=== PATIENT | male | born 1960 | race Caucasian/White ===

== ENCOUNTER 2016-09-23 09:34 | Emergency (ER) | payer BC ==
[~2016-09-23] VITALS: Ht 177.8 cm; Wt 82.9 kg
[2016-09-23 10:39] LABS: MCH 34.8 PG (29.0-34.0); MCHC 35.7 G/DL (30.0-36.0); MCV 97.6 FL (86-99); MEAN PLAT.VOLUME 10.1 uM^3 (9.0-12.4); PLATELET COUNT 118 K/uL (156-360); RBC DIS.WIDTH-CV 12.4 % (11.8-14.6); RED BLOOD COUNT 4.51 M/uL (4.00-5.50)
[2016-09-23 10:48] LABS: CHLORIDE 103 mEq/L (99-109); POTASSIUM 3.9 mEq/L (3.7-5.4); SODIUM 139 mEq/L (136-147)
[2016-09-23 10:49] LABS: GLUCOSE 84 mg/dL (70-99)
[2016-09-23 10:51] LABS: ANION GAP 13 MEQ/L (2-14)
[2016-09-23 10:53] LABS: GFR ESTIMATE (CALCULATED) > 59 mL/min/
[2016-09-23 10:54] LABS: UREA NITROGEN (BUN) 5 mg/dL (9-23)
[2016-09-23 13:53] LABS: TOTAL BILIRUBIN 0.6 mg/dL (0.0-1.0)
[2016-09-23 13:54] LABS: ALKALINE PHOSPHATASE 97 IU/L (3-129)
[2016-09-23 13:57] LABS: DIRECT BILIRUBIN 0.3 mg/dL (0.0-0.3)
[2016-09-23 13:58] LABS: LIPASE 276 U/L (1.0-51.0)
[2016-09-23 16:07] VITALS: BP 162/96
== END 2016-09-23 16:15 | disposition left against medical advice (07) ==
LOC: EME 09:34
DX: K92.2 Gastrointestinal hemorrhage, unspecified (principal); K52.9 Noninfective gastroenteritis and colitis, unspecified; I48.92 Unspecified atrial flutter; F17.200 Nicotine dependence, unspecified, uncomplicated
CPT/HCPCS: 74177; 80048; 80076; 83690; 85027; 86850; 86900; 86901; 93005; 99281; 99285; J7030

== ENCOUNTER → 2016-10-20 | Outpatient (CLI) | payer BC ==
[~2016-10-20] VITALS: Ht 177.8 cm; Wt 83.0 kg
[~2016-10-20] MED LIST: CENTRUM MEN'S1 EACH PO; FISH OIL 1,001000 M2 PO; LO-DOSE ASPIRIN81 M2 PO; PREVACID30 MG PO; TRAMADOL HCL50 MG PO; VERAPAMIL HCL360 MG PO; XANAX0.5 MG PO
== END | disposition home or self-care (01) ==
LOC: AMB 12:49
DX: Z09 Encounter for follow-up examination after completed treatment for conditions other than malignant neoplasm (principal); D12.3 Benign neoplasm of transverse colon; D12.0 Benign neoplasm of cecum; D12.2 Benign neoplasm of ascending colon; D12.5 Benign neoplasm of sigmoid colon; K62.1 Rectal polyp; K57.32 Diverticulitis of large intestine without perforation or abscess without bleeding; K21.9 Gastro-esophageal reflux disease without esophagitis; F17.210 Nicotine dependence, cigarettes, uncomplicated; Z79.82 Long term (current) use of aspirin
CPT/HCPCS: 88305; J2250; J3010

== ENCOUNTER 2017-07-18 12:48 | Inpatient (IN) | payer BC ==
[~2017-07-18] VITALS: Ht 177.8 cm; Wt 101.4 kg
[2017-07-18 13:40] LABS: EOSINOPHIL (%) 0.1 % (0-5); HEMATOCRIT 26.1 % (38.0-50.0); IMMATURE GRANULOCYTE (%) 0.8 % (0.0-0.7); IMMATURE GRANULOCYTE COUNT 0.1 K/uL; INSTRUMENT ABS NEUTROPHIL CT 14.2 K/uL; LYMPHOCYTE COUNT 0.7 K/uL (1.0-2.8); MCH 38.4 PG (29.0-34.0); MCHC 35.6 G/DL (30.0-36.0); MCV 107.9 FL (86-99); MEAN PLAT.VOLUME 11.1 uM^3 (9.0-12.4); MONOCYTE (%) 5.7 % (3-12); MONOCYTE COUNT 0.9 K/uL (0-0.8); NEUTROPHIL (%) 88.7 % (45-76); NEUTROPHIL COUNT 14.2 K/uL (1.8-6.4); PLATELET COUNT 113 K/uL (156-360); RBC DIS.WIDTH-CV 15.3 % (11.8-14.6); RBC DIS.WIDTH-SD 60.5 % (39-53); RED BLOOD COUNT 2.42 M/uL (4.00-5.50)
[2017-07-18 13:49] LABS: INTER. NORMALIZED RATIO 1.4; PROTHROMBIN TIME 15.4 SEC (10.2-12.9)
[2017-07-18 13:51] LABS: CHLORIDE 85 mEq/L (99-109)
[2017-07-18 13:52] LABS: POTASSIUM 2.9 mEq/L (3.7-5.4); SODIUM 124 mEq/L (136-147)
[2017-07-18 13:54] LABS: GLUCOSE 106 mg/dL (70-99)
[2017-07-18 13:55] LABS: ANION GAP 9 MEQ/L (2-14)
[2017-07-18 13:56] LABS: TOTAL BILIRUBIN 9.5 mg/dL (0.0-1.0)
[2017-07-18 13:57] LABS: ALKALINE PHOSPHATASE 336 IU/L (3-129); GFR ESTIMATE (CALCULATED) > 59 mL/min/
[2017-07-18 13:58] LABS: UREA NITROGEN (BUN) 11 mg/dL (9-23)
[2017-07-18 14:01] LABS: LIPASE 114 U/L (1.0-51.0)
[2017-07-18 15:14] LABS: SERUM ETHYL ALCOHOL < 10 mg/dL
[2017-07-18] MEDS ORDERED: MELOXICAM7.5 MG PO (16:14)
[2017-07-18] MEDS ORDERED: SERTRALINE HCL25 MG PO (16:15)
[2017-07-18] MEDS ORDERED: VERAPAMIL HCL240 MG PO (16:21)
[2017-07-18] MEDS ORDERED: VERAPAMIL SR120 MG PO (16:22)
[2017-07-18 16:23] LABS: AMPHETAMINE NEGATIVE (500 ng/mL); BARBITURATES NEGATIVE (200 ng/mL); BENZODIAZEPINES NEGATIVE (150 ng/mL); COCAINE NEGATIVE (150 ng/mL); INTERNAL CONTROLS VALID? YES; METHADONE NEGATIVE (200 ng/mL); METHAMPHETAMINE NEGATIVE (500 ng/mL); OPIATES (MORPHINE) NEGATIVE (100 ng/mL); OXYCODONE NEGATIVE (100 ng/mL); PHENCYCLIDINE NEGATIVE (25 ng/mL); PROPOXYPHENE NEGATIVE (300 ng/mL); THC CANNABINOIDS NEGATIVE (50 ng/mL); TRICYCLIC ANTIDEPRESSANTS NEGATIVE (300 ng/mL)
[2017-07-18] MEDS ORDERED: LANSOPRAZOLE30 MG PO (16:23)
[2017-07-18 16:24] LABS: CHLORIDE 89 mEq/L (99-109); POTASSIUM 2.8 mEq/L (3.7-5.4); SODIUM 122 mEq/L (136-147)
[2017-07-18 16:26] LABS: GLUCOSE 118 mg/dL (70-99)
[2017-07-18 16:28] LABS: ANION GAP 6 MEQ/L (2-14); TOTAL BILIRUBIN 8.7 mg/dL (0.0-1.0)
[2017-07-18 16:30] LABS: ALKALINE PHOSPHATASE 313 IU/L (3-129); GFR ESTIMATE (CALCULATED) > 59 mL/min/
[2017-07-18 16:31] LABS: UREA NITROGEN (BUN) 10 mg/dL (9-23)
[2017-07-18 17:28] LABS: HEMATOCRIT 25.6 % (38.0-50.0); MCV 108.5 FL (86-99)
[2017-07-18 19:17] LABS: CHLORIDE 93 mEq/L (99-109); POTASSIUM 3.2 mEq/L (3.7-5.4); SODIUM 126 mEq/L (136-147)
[2017-07-18 19:19] LABS: GLUCOSE 127 mg/dL (70-99)
[2017-07-18 19:20] LABS: ANION GAP 7 MEQ/L (2-14)
[2017-07-18 19:21] LABS: TOTAL BILIRUBIN 8.4 mg/dL (0.0-1.0)
[2017-07-18 19:22] LABS: ALKALINE PHOSPHATASE 293 IU/L (3-129)
[2017-07-18 19:23] LABS: GFR ESTIMATE (CALCULATED) > 59 mL/min/
[2017-07-18 19:24] LABS: UREA NITROGEN (BUN) 11 mg/dL (9-23)
[2017-07-19] VITALS (14 sets, daily range): BP systolic 81–135; BP diastolic 57–124
[2017-07-19 00:31] LABS: HEMATOCRIT 27.9 % (38.0-50.0); MCV 110.3 FL (86-99)
[2017-07-19 07:42] LABS: METH RESISTANT S AUREUS PCR NEGATIVE (NEGATIVE); PROBE CHECK PASS; SPECIMEN PROCESSING CONTROL PASS
[2017-07-19 07:52] LABS: HEMATOCRIT 26.7 % (38.0-50.0); MCV 113.6 FL (86-99)
[2017-07-19 08:02] LABS: INTER. NORMALIZED RATIO 1.3; PROTHROMBIN TIME 14.9 SEC (10.2-12.9)
[2017-07-19 08:17] LABS: ALKALINE PHOSPHATASE 256 IU/L (3-129); ANION GAP 4 MEQ/L (2-14); CHLORIDE 99 MEQ/L (99-109); GFR ESTIMATE (CALCULATED) > 59 mL/min/; GLUCOSE 121 mg/dL (70-99); POTASSIUM 3.8 MEQ/L (3.7-5.4); SAMPLE HEMOLYSIS CHECK 0; SAMPLE ICTERIC CHECK 2; SAMPLE LIPEMIA CHECK 0; SODIUM 128 MEQ/L (136-147); TOTAL BILIRUBIN 9.5 MG/DL (0.0-1.0); UREA NITROGEN (BUN) 7 mg/dL (9-23)
[2017-07-19 11:40] LABS: HBSG INDEX 0.18
[2017-07-19 11:41] LABS: ANTI-HEPATITIS A VIRUS (IGM) Nonreactive; HAV INDEX 0.23; HPCA INDEX 0.09
[2017-07-19 11:42] LABS: ANTI-HEPATITIS B CORE (IGM) Nonreactive; HBC IgM INDEX 0.19
[2017-07-19 11:45] LABS: HBSG INDEX 0.32; HPCA INDEX 0.11
[2017-07-19 11:46] LABS: ANTI-HEPATITIS A VIRUS (IGM) Nonreactive; ANTI-HEPATITIS B CORE (IGM) Nonreactive; HAV INDEX 0.26; HBC IgM INDEX 0.17
[2017-07-20] VITALS (9 sets, daily range): BP systolic 88–116; BP diastolic 68–86
[2017-07-20 06:21] LABS: HEMATOCRIT 26.7 % (38.0-50.0); MCH 38.5 PG (29.0-34.0); MCHC 33.7 G/DL (30.0-36.0); MCV 114.1 FL (86-99); MEAN PLAT.VOLUME 11.3 uM^3 (9.0-12.4); PLATELET COUNT 101 K/uL (156-360); RBC DIS.WIDTH-CV 15.3 % (11.8-14.6); RBC DIS.WIDTH-SD 64.3 % (39-53); RED BLOOD COUNT 2.34 M/uL (4.00-5.50)
[2017-07-20 06:48] LABS: ALKALINE PHOSPHATASE 253 IU/L (3-129); ANION GAP 5 MEQ/L (2-14); CHLORIDE 100 MEQ/L (99-109); GFR ESTIMATE (CALCULATED) > 59 mL/min/; GLUCOSE 95 mg/dL (70-99); POTASSIUM 3.4 MEQ/L (3.7-5.4); SAMPLE HEMOLYSIS CHECK 0; SAMPLE ICTERIC CHECK 2; SAMPLE LIPEMIA CHECK 0; SODIUM 130 MEQ/L (136-147); UREA NITROGEN (BUN) 6 mg/dL (9-23)
[2017-07-21 06:23] LABS: HEMATOCRIT 26.4 % (38.0-50.0); MCH 39.8 PG (29.0-34.0); MCHC 34.8 G/DL (30.0-36.0); MCV 114.3 FL (86-99); PLATELET COUNT 93 K/uL (156-360); RBC DIS.WIDTH-CV 15.2 % (11.8-14.6); RBC DIS.WIDTH-SD 63.8 % (39-53); RED BLOOD COUNT 2.31 M/uL (4.00-5.50); WHITE BLOOD COUNT 11.2 K/uL (4.1-10.2)
[2017-07-21 06:29] LABS: INTER. NORMALIZED RATIO 1.3; PROTHROMBIN TIME 14.6 SEC (10.2-12.9)
[2017-07-21 07:05] LABS: ALKALINE PHOSPHATASE 292 IU/L (3-129); ANION GAP 3 MEQ/L (2-14); CHLORIDE 99 MEQ/L (99-109); GFR ESTIMATE (CALCULATED) > 59 mL/min/; GLUCOSE 98 mg/dL (70-99); POTASSIUM 3.7 MEQ/L (3.7-5.4); SAMPLE HEMOLYSIS CHECK 0; SAMPLE ICTERIC CHECK 2; SAMPLE LIPEMIA CHECK 0; SODIUM 127 MEQ/L (136-147); TOTAL BILIRUBIN 8.2 MG/DL (0.0-1.0); UREA NITROGEN (BUN) 7 mg/dL (9-23)
[2017-07-21 07:27] VITALS: BP 114/74
[2017-07-21 11:40] VITALS: BP 145/80
[2017-07-21 14:52] LABS: MAGNESIUM 1.3 mg/dl (1.3-2.7)
[2017-07-21 15:42] VITALS: BP 113/63
[2017-07-21 20:46] VITALS: BP 105/70
[2017-07-21 23:50] VITALS: BP 100/62
[2017-07-22 03:25] LABS: POINT-OF-CARE METER ID UU13113717
[2017-07-22 04:24] VITALS: BP 97/66
[2017-07-22 06:48] LABS: HEMATOCRIT 26.6 % (38.0-50.0); MCH 37.9 PG (29.0-34.0); MCHC 33.1 G/DL (30.0-36.0); MCV 114.7 FL (86-99); MEAN PLAT.VOLUME 11.5 uM^3 (9.0-12.4); PLATELET COUNT 100 K/uL (156-360); RBC DIS.WIDTH-SD 62.5 % (39-53); RED BLOOD COUNT 2.32 M/uL (4.00-5.50); WHITE BLOOD COUNT 12.4 K/uL (4.1-10.2)
[2017-07-22 07:04] LABS: INTER. NORMALIZED RATIO 1.3
[2017-07-22 07:29] LABS: ALKALINE PHOSPHATASE 269 IU/L (3-129); ANION GAP 6 MEQ/L (2-14); CHLORIDE 101 MEQ/L (99-109); GFR ESTIMATE (CALCULATED) > 59 mL/min/; GLUCOSE 108 mg/dL (70-99); POTASSIUM 3.9 MEQ/L (3.7-5.4); SAMPLE HEMOLYSIS CHECK 0; SAMPLE ICTERIC CHECK 2; SAMPLE LIPEMIA CHECK 0; SODIUM 129 MEQ/L (136-147); UREA NITROGEN (BUN) 8 mg/dL (9-23)
[2017-07-22 09:29] VITALS: BP 94/65
[2017-07-22 12:24] VITALS: BP 86/69
[2017-07-22 16:14] VITALS: BP 102/68
[2017-07-22 20:02] VITALS: BP 94/65
[2017-07-22 21:05] LABS: C DIFF TOXIN POSITIVE (NEGATIVE)
[2017-07-22 21:17] LABS: PROBE CHECK PASS
[2017-07-23 00:54] VITALS: BP 113/81
[2017-07-23 04:26] LABS: INTERNAL CONTROL VALID? YES
[2017-07-23 07:22] LABS: BASOPHIL COUNT 0.1 K/uL (0-0.1); EOSINOPHIL (%) 0.7 % (0-5); EOSINOPHIL COUNT 0.1 K/uL (0-0.3); HEMATOCRIT 26.6 % (38.0-50.0); IMMATURE GRANULOCYTE (%) 0.7 % (0.0-0.7); IMMATURE GRANULOCYTE COUNT 0.1 K/uL; INSTRUMENT ABS NEUTROPHIL CT 10.2 K/uL; LYMPHOCYTE COUNT 0.9 K/uL (1.0-2.8); MCH 38.1 PG (29.0-34.0); MCHC 33.1 G/DL (30.0-36.0); MCV 115.2 FL (86-99); MEAN PLAT.VOLUME 11.4 uM^3 (9.0-12.4); MONOCYTE (%) 7.6 % (3-12); MONOCYTE COUNT 0.9 K/uL (0-0.8); NEUTROPHIL (%) 83.1 % (45-76); NEUTROPHIL COUNT 10.2 K/uL (1.8-6.4); PLATELET COUNT 106 K/uL (156-360); RBC DIS.WIDTH-CV 15.1 % (11.8-14.6); RBC DIS.WIDTH-SD 64.8 % (39-53); RED BLOOD COUNT 2.31 M/uL (4.00-5.50); WHITE BLOOD COUNT 12.2 K/uL (4.1-10.2)
[2017-07-23 07:42] VITALS: BP 112/64
[2017-07-23 07:58] LABS: ALKALINE PHOSPHATASE 261 IU/L (3-129); ANION GAP 5 MEQ/L (2-14); CHLORIDE 103 MEQ/L (99-109); GFR ESTIMATE (CALCULATED) > 59 mL/min/; GLUCOSE 104 mg/dL (70-99); POTASSIUM 3.4 MEQ/L (3.7-5.4); SAMPLE HEMOLYSIS CHECK 0; SAMPLE ICTERIC CHECK 1; SAMPLE LIPEMIA CHECK 0; SODIUM 131 MEQ/L (136-147); TOTAL BILIRUBIN 5.6 MG/DL (0.0-1.0); UREA NITROGEN (BUN) 9 mg/dL (9-23)
[2017-07-23 07:59] LABS: MAGNESIUM 1.6 mg/dl (1.3-2.7)
[2017-07-23 11:14] VITALS: BP 87/57
[2017-07-23 16:53] VITALS: BP 93/66
[2017-07-23 19:33] VITALS: BP 110/64
[2017-07-24 00:22] VITALS: BP 116/69
[2017-07-24 03:39] VITALS: BP 106/71
[2017-07-24 06:46] LABS: HEMATOCRIT 28.3 % (38.0-50.0); MCHC 32.5 G/DL (30.0-36.0); MCV 116.9 FL (86-99); MEAN PLAT.VOLUME 11.2 uM^3 (9.0-12.4); PLATELET COUNT 120 K/uL (156-360); RBC DIS.WIDTH-SD 65.1 % (39-53); RED BLOOD COUNT 2.42 M/uL (4.00-5.50); WHITE BLOOD COUNT 11.8 K/uL (4.1-10.2)
[2017-07-24 07:08] LABS: ANION GAP 8 MEQ/L (2-14); CHLORIDE 105 MEQ/L (99-109); GFR ESTIMATE (CALCULATED) > 59 mL/min/ (58.99-99999); GLUCOSE 99 mg/dL (70-99); MAGNESIUM 1.6 mg/dl (1.3-2.7); SAMPLE HEMOLYSIS CHECK 0; SAMPLE ICTERIC CHECK 1; SAMPLE LIPEMIA CHECK 0; SODIUM 132 MEQ/L (136-147); UREA NITROGEN (BUN) 10 mg/dL (9-23)
[2017-07-24 07:11] LABS: POTASSIUM 4.6 MEQ/L (3.7-5.4)
[2017-07-24 07:40] VITALS: BP 112/78
[2017-07-24 11:33] VITALS: BP 110/74
[2017-07-24 15:40] VITALS: BP 104/72
[2017-07-24 19:56] VITALS: BP 120/72
[2017-07-25 00:17] VITALS: BP 113/74
[2017-07-25 07:15] LABS: ALKALINE PHOSPHATASE 246 IU/L (3-129); ANION GAP 4 MEQ/L (2-14); CHLORIDE 107 MEQ/L (99-109); GFR ESTIMATE (CALCULATED) > 59 mL/min/ (58.99-99999); GLUCOSE 82 mg/dL (70-99); MAGNESIUM 1.4 mg/dl (1.3-2.7); POTASSIUM 4.7 MEQ/L (3.7-5.4); SAMPLE HEMOLYSIS CHECK 0; SAMPLE ICTERIC CHECK 1; SAMPLE LIPEMIA CHECK 0; SODIUM 133 MEQ/L (136-147); TOTAL BILIRUBIN 4.6 MG/DL (0.0-1.0); UREA NITROGEN (BUN) 10 mg/dL (9-23)
[2017-07-25 07:24] VITALS: BP 108/67
[2017-07-25 10:01] LABS: HEMATOCRIT 29.1 % (38.0-50.0); MCH 38.8 PG (29.0-34.0); MCHC 32.6 G/DL (30.0-36.0); MCV 118.8 FL (86-99); MEAN PLAT.VOLUME 11.1 uM^3 (9.0-12.4); PLATELET COUNT 130 K/uL (156-360); RBC DIS.WIDTH-CV 15.1 % (11.8-14.6); RBC DIS.WIDTH-SD 66.4 % (39-53); RED BLOOD COUNT 2.45 M/uL (4.00-5.50); WHITE BLOOD COUNT 11.6 K/uL (4.1-10.2)
[2017-07-25 11:06] VITALS: BP 126/94
[2017-07-25] MEDS ORDERED: VANCOCIN HCL125 MG PO (11:33)
[2017-07-25] MEDS ORDERED: FLAGYL500 MG PO (11:33)
[2017-07-25] MEDS ORDERED: OYSTER SHELL 51 EACH PO (11:36)
[2017-07-25] MEDS ORDERED: TRAMADOL HCL50 MG PO (11:36)
[2017-07-25] MEDS ORDERED: CALAN SR,COVER240 MG PO (11:36)
[2017-07-25] MEDS ORDERED: FAMOTIDINE20 MG PO (11:36)
[2017-07-25] MEDS ORDERED: Salonpas 4% Patch TD (11:36)
[2017-07-25] MEDS ORDERED: Thiamine,Vitamin B1 PO (11:36)
[2017-07-25] MEDS ORDERED: NICOTINE PATCH1 EAC2 TD (11:36)
[2017-07-25] MEDS ORDERED: FOLIC ACID1 MG PO (11:36)
[2017-07-25] MEDS ORDERED: ACIDOPHILUS LA1 EACH PO (11:36)
== END 2017-07-25 15:57 | disposition home health service (06) | DRG 433 ==
LOC: EME 12:48 → EDOF 15:31 → 4WEST 15:31 → 5SOUTH 15:31 → ENRESERV 15:38 → CANRESERV 07-19 04:08 → ENRESERV 07-19 05:12 → 4WEST 07-19 06:00 → ENRESERV 07-20 13:09 → 5SOUTH 07-20 14:17
PROVIDERS: Emergency Medicine; Family Medicine; Hospitalist; Internal Medicine Gastroenterology
DX: K70.40 Alcoholic hepatic failure without coma (principal); K70.10 Alcoholic hepatitis without ascites; E44.0 Moderate protein-calorie malnutrition; E83.42 Hypomagnesemia; E83.39 Other disorders of phosphorus metabolism; A04.72 Enterocolitis due to Clostridium difficile, not specified as recurrent; E83.51 Hypocalcemia; E87.1 Hypo-osmolality and hyponatremia; D68.4 Acquired coagulation factor deficiency; D69.6 Thrombocytopenia, unspecified; I95.9 Hypotension, unspecified; E87.6 Hypokalemia; E86.0 Dehydration; R00.0 Tachycardia, unspecified; D53.9 Nutritional anemia, unspecified; F10.10 Alcohol abuse, uncomplicated; I10 Essential (primary) hypertension; K21.9 Gastro-esophageal reflux disease without esophagitis; G89.29 Other chronic pain; M54.5 Low back pain; G47.00 Insomnia, unspecified; F17.210 Nicotine dependence, cigarettes, uncomplicated; Z79.82 Long term (current) use of aspirin; Z86.010 Personal history of colon polyps; Z23 Encounter for immunization
CPT/HCPCS: 71010; 71020; 74177; 80048; 80053; 80074; 82140; 82272; 82330; 82607; 82746; 82948; 83605; 83690; 83735; 84100; 84132 91; 85014; 85018; 85025; 85027; 85610; 86850; 86900; 86901; 87040; 87493; 87641; 90686; 93005; 94799; 97530 GP; 99281; 99284; G0480; J0610; J0696; J2354; J3411; J3475; J3480; J7030; J7040; J7050; S0030

== ENCOUNTER 2017-07-31 09:50 | Emergency (ER) | payer BC ==
[~2017-07-31] VITALS: Ht 177.8 cm; Wt 104.3 kg
[~2017-07-31 09:50] MED LIST changes: +ACIDOPHILUS LA1 EACH PO; +CALAN SR,COVER240 MG PO; +FAMOTIDINE20 MG PO; +FLAGYL500 MG PO; +FOLIC ACID1 MG PO; +LANSOPRAZOLE30 MG PO; +MELOXICAM7.5 MG PO; +NICOTINE PATCH1 EAC2 TD; +OYSTER SHELL 51 EACH PO; +SERTRALINE HCL25 MG PO; +Salonpas 4% Patch TD; +Thiamine,Vitamin B1 PO; +VANCOCIN HCL125 MG PO; +VERAPAMIL HCL240 MG PO; +VERAPAMIL SR120 MG PO
[2017-07-31 11:06] LABS: TROP-I INTERPRETATION NEGATIVE; TROPONIN-I < 0.01 ng/mL (0.0-0.30)
[2017-07-31 11:07] LABS: CK-MB 1.7 ng/mL (0.0-4.9)
[2017-07-31 11:21] LABS: EOSINOPHIL COUNT 0.1 K/uL (0-0.3); HEMATOCRIT 31.4 % (38.0-50.0); IMMATURE GRANULOCYTE (%) 0.4 % (0.0-0.7); IMMATURE GRANULOCYTE COUNT 0.1 K/uL; INSTRUMENT ABS NEUTROPHIL CT 11.7 K/uL; LYMPHOCYTE COUNT 0.7 K/uL (1.0-2.8); MCH 38.2 PG (29.0-34.0); MCHC 33.4 G/DL (30.0-36.0); MCV 114.2 FL (86-99); MEAN PLAT.VOLUME 10.4 uM^3 (9.0-12.4); MONOCYTE COUNT 1.1 K/uL (0-0.8); NEUTROPHIL (%) 85.5 % (45-76); NEUTROPHIL COUNT 11.7 K/uL (1.8-6.4); PLATELET COUNT 191 K/uL (156-360); RBC DIS.WIDTH-CV 13.9 % (11.8-14.6); RBC DIS.WIDTH-SD 57.9 % (39-53); RED BLOOD COUNT 2.75 M/uL (4.00-5.50); WHITE BLOOD COUNT 13.7 K/uL (4.1-10.2)
[2017-07-31 11:49] LABS: ALKALINE PHOSPHATASE 235 IU/L (3-129); ANION GAP 8 MEQ/L (2-14); CHLORIDE 104 MEQ/L (99-109); GFR ESTIMATE (CALCULATED) > 59 mL/min/ (58.99-99999); GLUCOSE 110 mg/dL (70-99); MAGNESIUM 1.4 mg/dl (1.3-2.7); POTASSIUM 3.8 MEQ/L (3.7-5.4); SAMPLE HEMOLYSIS CHECK 0; SAMPLE ICTERIC CHECK 0; SAMPLE LIPEMIA CHECK 0; SERUM ETHYL ALCOHOL < 10 mg/dL; SODIUM 132 MEQ/L (136-147); UREA NITROGEN (BUN) 12 mg/dL (9-23)
[2017-07-31 11:51] LABS: TOTAL BILIRUBIN 3.4 MG/DL (0.0-1.0)
[2017-07-31 13:11] LABS: CREATINE KINASE 18 IU/L (1-294); TOTAL CK 18 IU/L (1-294)
[2017-07-31 15:10] LABS: ADD MIUA? YES; BILIRUBIN SMALL; BLOOD NEGATIVE; COLOR AMBER ((YELLOW)); GLUCOSE (STRIP) NEGATIVE; KETONES 5; LEUKOCYTES TRACE; NITRITE NEGATIVE; PROTEIN (STRIP) 30; SPECIFIC GRAVITY 1.023 (1.000-1.030)
[2017-07-31 15:23] LABS: AMORPHOUS URATES CRYSTALS 1+; BACTERIA NONE SEEN /HPF; CASTS PRESENT /LPF; CRYSTALS PRESENT; EPITHELIAL CELLS NONE SEEN /HPF; HYALINE CASTS 0-5 /LPF; MUCUS 1+ /LPF; RED BLOOD CELLS RARE /HPF (0-5); UCUL ADDED? NO; WHITE BLOOD CELLS 0-5 /HPF (0-5)
[2017-07-31 16:26] VITALS: BP 106/74
== END 2017-07-31 16:26 | disposition home or self-care (01) ==
LOC: EME 09:50
PROVIDERS: Emergency Medicine
DX: A04.72 Enterocolitis due to Clostridium difficile, not specified as recurrent (principal); E86.0 Dehydration; I47.1 Supraventricular tachycardia; R00.2 Palpitations; F17.200 Nicotine dependence, unspecified, uncomplicated
CPT/HCPCS: 80053; 81003; 82550; 82553; 83735; 84484; 85025; 87493; 93005; 99281; 99285; G0480; J7030

== ENCOUNTER 2017-08-16 07:28 | Inpatient (IN) | payer BC ==
[~2017-08-16] VITALS: Ht 177.8 cm; Wt 89.0 kg
[2017-08-16 08:13] LABS: BASOPHIL (%) 0.1 % (0-1); EOSINOPHIL COUNT 0.1 K/uL (0-0.3); HEMATOCRIT 34.9 % (38.0-50.0); HEMOGLOBIN 11.7 G/DL (12.5-16.6); IMMATURE GRANULOCYTE (%) 0.2 % (0.0-0.7); LYMPHOCYTE (%) 7.2 % (15-42); LYMPHOCYTE COUNT 0.7 K/uL (1.0-2.8); MCH 35.7 PG (29.0-34.0); MCHC 33.5 G/DL (30.0-36.0); MONOCYTE (%) 9.5 % (3-12); NEUTROPHIL COUNT 8.3 K/uL (1.8-6.4); PLATELET COUNT 143 K/uL (156-360); RBC DIS.WIDTH-CV 12.5 % (11.8-14.6); RBC DIS.WIDTH-SD 49.1 % (39-53); RED BLOOD COUNT 3.28 M/uL (4.00-5.50); WHITE BLOOD COUNT 10.2 K/uL (4.1-10.2)
[2017-08-16 08:15] LABS: INTER. NORMALIZED RATIO 1.2
[2017-08-16 08:16] LABS: MCV 106.4 FL (86-99)
[2017-08-16 08:43] LABS: TROP-I INTERPRETATION NEGATIVE; TROPONIN-I < 0.01 ng/mL (0.0-0.30)
[2017-08-16 08:52] LABS: ALBUMIN 2.1 G/DL (3.2-4.8); ALKALINE PHOSPHATASE 203 IU/L (3-129); ALT (GPT) 89 IU/L (3-49); AST (GOT) 91 IU/L (2-34); CHLORIDE 98 MEQ/L (99-109); CREATININE 0.5 MG/DL (0.6-1.3); GFR ESTIMATE (CALCULATED) > 59 mL/min/ (58.99-99999); GLUCOSE 99 mg/dL (70-99); POTASSIUM 4.4 MEQ/L (3.7-5.4); SERUM ETHYL ALCOHOL 11 mg/dL; SODIUM 127 MEQ/L (136-147); TOTAL BILIRUBIN 2.1 MG/DL (0.0-1.0); TOTAL PROTEIN 5.3 G/DL (6.4-8.3); UREA NITROGEN (BUN) 8 mg/dL (9-23)
[2017-08-16 09:24] LABS: TYPE OF FLUID PERITONEAL
[2017-08-16 10:12] LABS: APPEARANCE CLEAR-COLORLESS; BODY FLUID EOSINOPHILS 0 % (0-25); BODY FLUID RBC'S < 1000 /MM^3 (0-100); BODY FLUID WBC'S 21 /MM^3 (0-500); MONONUCLEAR WBC'S 86 %; POLYNUCLEAR WBC'S 14 % (0-25)
[2017-08-16] MEDS ORDERED: LANSOPRAZOLE30 MG PO (10:48)
[2017-08-16] MEDS ORDERED: THIAMINE HCL100 MG PO (10:50)
[2017-08-16] MEDS ORDERED: SPIRONOLACTONE50 MG PO (10:51)
[2017-08-16] MEDS ORDERED: NICODERM CQ1 EAC2 TD (11:11)
[2017-08-16] MEDS ORDERED: SALONPAS PATCH1 EAC1 TD (11:12)
[2017-08-16 14:21] LABS: APPEARANCE SL.HAZY ((CLEAR)); BILIRUBIN NEGATIVE; BLOOD NEGATIVE; COLOR AMBER ((YELLOW)); GLUCOSE (STRIP) NEGATIVE; KETONES NEGATIVE; LEUKOCYTES NEGATIVE; NITRITE NEGATIVE; PROTEIN (STRIP) NEGATIVE; UROBILINOGEN 0.2 MG/DL (0.2-1.0)
[2017-08-16 15:04] LABS: BACTERIA NONE SEEN /HPF; EPITHELIAL CELLS RARE /HPF; MUCUS TRACE /LPF; UCUL ADDED? YES
[2017-08-16 16:23] VITALS: BP 98/68
[2017-08-16 20:04] VITALS: BP 94/56
[2017-08-16 23:29] VITALS: BP 94/59
[2017-08-17 04:33] VITALS: BP 100/64
[2017-08-17 05:46] LABS: HEMATOCRIT 31.5 % (38.0-50.0); HEMOGLOBIN 10.9 G/DL (12.5-16.6); MCHC 34.6 G/DL (30.0-36.0); PLATELET COUNT 109 K/uL (156-360); RBC DIS.WIDTH-CV 12.3 % (11.8-14.6); RBC DIS.WIDTH-SD 47.3 % (39-53); RED BLOOD COUNT 3.03 M/uL (4.00-5.50); WHITE BLOOD COUNT 7.7 K/uL (4.1-10.2)
[2017-08-17 06:12] LABS: CHLORIDE 97 MEQ/L (99-109); CREATININE 0.4 MG/DL (0.6-1.3); GFR ESTIMATE (CALCULATED) > 59 mL/min/ (58.99-99999); GLUCOSE 79 mg/dL (70-99); SODIUM 127 MEQ/L (136-147); UREA NITROGEN (BUN) 7 mg/dL (9-23)
[2017-08-17 06:30] LABS: INTER. NORMALIZED RATIO 1.2
[2017-08-17 07:37] VITALS: BP 98/58
[2017-08-17 11:47] VITALS: BP 92/63
[2017-08-17 15:15] VITALS: BP 93/62
[2017-08-17 19:23] VITALS: BP 99/65
[2017-08-18] VITALS (7 sets, daily range): BP systolic 87–101; BP diastolic 51–70
[2017-08-18 06:23] LABS: HEMATOCRIT 33.9 % (38.0-50.0); HEMOGLOBIN 11.6 G/DL (12.5-16.6); MCH 36.1 PG (29.0-34.0); MCHC 34.2 G/DL (30.0-36.0); MCV 105.6 FL (86-99); PLATELET COUNT 118 K/uL (156-360); RBC DIS.WIDTH-CV 12.3 % (11.8-14.6); RED BLOOD COUNT 3.21 M/uL (4.00-5.50); WHITE BLOOD COUNT 9.4 K/uL (4.1-10.2)
[2017-08-18 07:42] LABS: CHLORIDE 95 MEQ/L (99-109); CREATININE 0.5 MG/DL (0.6-1.3); GFR ESTIMATE (CALCULATED) > 59 mL/min/ (58.99-99999); GLUCOSE 90 mg/dL (70-99); SODIUM 128 MEQ/L (136-147); UREA NITROGEN (BUN) 8 mg/dL (9-23)
[2017-08-18 14:52] LABS: TYPE OF FLUID PLEURAL
[2017-08-18 15:20] LABS: APPEARANCE CLEAR-YELLOW; BODY FLUID RBC'S < 1000 /MM^3 (0-100); BODY FLUID WBC'S 75 /MM^3 (0-500)
[2017-08-18 16:12] LABS: BODY FLUID GLUCOSE 116 MG/DL; BODY FLUID LDH 61 IU/L; BODY FLUID PROTEIN < 3.0 G/DL
[2017-08-18 16:55] LABS: BODY FLUID EOSINOPHILS 0 % (0-25); MONONUCLEAR WBC'S 11 %; POLYNUCLEAR WBC'S 89 % (0-25)
[2017-08-19 00:09] VITALS: BP 97/65
[2017-08-19 04:13] VITALS: BP 90/61
[2017-08-19 04:57] LABS: HEMATOCRIT 31.2 % (38.0-50.0); HEMOGLOBIN 10.6 G/DL (12.5-16.6); MCH 35.5 PG (29.0-34.0); MCV 104.3 FL (86-99); PLATELET COUNT 107 K/uL (156-360); RBC DIS.WIDTH-CV 12.4 % (11.8-14.6); RBC DIS.WIDTH-SD 47.7 % (39-53); RED BLOOD COUNT 2.99 M/uL (4.00-5.50); WHITE BLOOD COUNT 10.6 K/uL (4.1-10.2)
[2017-08-19 05:13] LABS: CHLORIDE 96 mEq/L (99-109); SODIUM 127 mEq/L (136-147)
[2017-08-19 05:15] LABS: GLUCOSE 104 mg/dL (70-99)
[2017-08-19 05:18] LABS: CREATININE 0.5 mg/dL (0.6-1.3); GFR ESTIMATE (CALCULATED) > 59 mL/min/ (58.99-99999)
[2017-08-19 05:20] LABS: UREA NITROGEN (BUN) 7 mg/dL (9-23)
[2017-08-19 11:09] VITALS: BP 87/55
[2017-08-19 15:27] VITALS: BP 117/57
[2017-08-19 19:46] VITALS: BP 85/66
[2017-08-19 23:46] VITALS: BP 90/56
[2017-08-20 04:56] VITALS: BP 108/72
[2017-08-20 05:50] LABS: HEMOGLOBIN 10.3 G/DL (12.5-16.6); MCH 34.8 PG (29.0-34.0); MCHC 33.2 G/DL (30.0-36.0); MCV 104.7 FL (86-99); PLATELET COUNT 105 K/uL (156-360); RBC DIS.WIDTH-CV 12.2 % (11.8-14.6); RED BLOOD COUNT 2.96 M/uL (4.00-5.50); WHITE BLOOD COUNT 7.9 K/uL (4.1-10.2)
[2017-08-20 06:12] LABS: ALBUMIN 2.2 G/DL (3.2-4.8); ALKALINE PHOSPHATASE 138 IU/L (3-129); ALT (GPT) 52 IU/L (3-49); AST (GOT) 54 IU/L (2-34); CHLORIDE 96 MEQ/L (99-109); CREATININE 0.4 MG/DL (0.6-1.3); GFR ESTIMATE (CALCULATED) > 59 mL/min/ (58.99-99999); GLUCOSE 87 mg/dL (70-99); POTASSIUM 3.8 MEQ/L (3.7-5.4); SODIUM 127 MEQ/L (136-147); TOTAL BILIRUBIN 1.5 MG/DL (0.0-1.0); TOTAL PROTEIN 4.7 G/DL (6.4-8.3); UREA NITROGEN (BUN) 5 mg/dL (9-23)
[2017-08-20 07:51] VITALS: BP 103/72
[2017-08-20 15:38] VITALS: BP 85/60
[2017-08-20 19:42] VITALS: BP 89/66
[2017-08-21] VITALS (8 sets, daily range): BP systolic 78–137; BP diastolic 50–59
[2017-08-21 07:50] LABS: HEMATOCRIT 32.7 % (38.0-50.0); HEMOGLOBIN 10.8 G/DL (12.5-16.6); MCH 34.7 PG (29.0-34.0); MCV 105.1 FL (86-99); PLATELET COUNT 121 K/uL (156-360); RBC DIS.WIDTH-CV 12.4 % (11.8-14.6); RBC DIS.WIDTH-SD 47.2 % (39-53); RED BLOOD COUNT 3.11 M/uL (4.00-5.50); WHITE BLOOD COUNT 8.4 K/uL (4.1-10.2)
[2017-08-21 08:15] LABS: MAGNESIUM 1.3 mg/dl (1.3-2.7)
[2017-08-21 10:18] LABS: TROP-I INTERPRETATION NEGATIVE; TROPONIN-I < 0.01 ng/mL (0.0-0.30)
[2017-08-21 21:33] LABS: BASE EXCESS 4.8 mEq/L (-3 to +3); BICARBONATE 28.1 mEq/L (22-26); CARBOXY HGB 2.4 % (0-5); COMMENTS - BLOOD GASES C+; METHEMOGLOBIN 1.6 % (0-1.5); PCO2 36 mm Hg (35-45); PO2 49 mm Hg (80-100); SITE RR
[2017-08-21 21:34] LABS: DEVICE HFNC; O2 FLOW 8 L/MIN; TOTAL RESP RATE 24 resp/min
[2017-08-22] VITALS (7 sets, daily range): BP systolic 84–99; BP diastolic 51–64
[2017-08-22 06:59] LABS: HEMATOCRIT 33.5 % (38.0-50.0); HEMOGLOBIN 11.5 G/DL (12.5-16.6); MCH 35.5 PG (29.0-34.0); MCHC 34.3 G/DL (30.0-36.0); MCV 103.4 FL (86-99); PLATELET COUNT 129 K/uL (156-360); RBC DIS.WIDTH-CV 12.4 % (11.8-14.6); RBC DIS.WIDTH-SD 48.1 % (39-53); RED BLOOD COUNT 3.24 M/uL (4.00-5.50)
[2017-08-22 07:26] LABS: ALBUMIN 2.1 G/DL (3.2-4.8); CHLORIDE 94 MEQ/L (99-109); CREATININE 0.4 MG/DL (0.6-1.3); GFR ESTIMATE (CALCULATED) > 59 mL/min/ (58.99-99999); PHOSPHORUS 3.9 mg/dL (2.5-4.9); POTASSIUM 4.2 MEQ/L (3.7-5.4); SODIUM 126 MEQ/L (136-147); UREA NITROGEN (BUN) 6 mg/dL (9-23)
[2017-08-22 07:27] LABS: GLUCOSE 137 mg/dL (70-99)
[2017-08-23 05:00] VITALS: BP 90/60
[2017-08-23 08:59] LABS: HEMATOCRIT 31.1 % (38.0-50.0); HEMOGLOBIN 10.7 G/DL (12.5-16.6); MCH 35.8 PG (29.0-34.0); MCHC 34.4 G/DL (30.0-36.0); PLATELET COUNT 124 K/uL (156-360); RBC DIS.WIDTH-CV 12.5 % (11.8-14.6); RBC DIS.WIDTH-SD 47.4 % (39-53); RED BLOOD COUNT 2.99 M/uL (4.00-5.50); WHITE BLOOD COUNT 8.9 K/uL (4.1-10.2)
[2017-08-23 09:20] VITALS: BP 131/60
[2017-08-23 09:24] LABS: CHLORIDE 96 MEQ/L (99-109); CREATININE 0.4 MG/DL (0.6-1.3); GFR ESTIMATE (CALCULATED) > 59 mL/min/ (58.99-99999); POTASSIUM 3.7 MEQ/L (3.7-5.4); SODIUM 129 MEQ/L (136-147); UREA NITROGEN (BUN) 7 mg/dL (9-23)
[2017-08-23 09:37] LABS: GLUCOSE 88 mg/dL (70-99)
[2017-08-23 12:00] VITALS: BP 87/58
[2017-08-23 16:00] VITALS: BP 90/60
[2017-08-23 20:09] VITALS: BP 90/57
[2017-08-23 23:27] VITALS: BP 92/60
[2017-08-24] VITALS (7 sets, daily range): BP systolic 90–112; BP diastolic 55–69
[2017-08-24 05:54] LABS: HEMATOCRIT 31.5 % (38.0-50.0); HEMOGLOBIN 10.8 G/DL (12.5-16.6); MCH 35.6 PG (29.0-34.0); MCHC 34.3 G/DL (30.0-36.0); PLATELET COUNT 128 K/uL (156-360); RBC DIS.WIDTH-CV 12.6 % (11.8-14.6); RBC DIS.WIDTH-SD 47.5 % (39-53); RED BLOOD COUNT 3.03 M/uL (4.00-5.50)
[2017-08-24 06:27] LABS: CHLORIDE 96 MEQ/L (99-109); CREATININE 0.5 MG/DL (0.6-1.3); GFR ESTIMATE (CALCULATED) > 59 mL/min/ (58.99-99999); GLUCOSE 78 mg/dL (70-99); POTASSIUM 3.5 MEQ/L (3.7-5.4); SODIUM 130 MEQ/L (136-147); UREA NITROGEN (BUN) 7 mg/dL (9-23)
[2017-08-25 04:50] VITALS: BP 91/58
[2017-08-25 08:27] VITALS: BP 85/57
[2017-08-25 10:39] VITALS: BP 100/68
[2017-08-25] MEDS ORDERED: ALDACTONE100 MG PO (15:10)
[2017-08-25] MEDS ORDERED: PANTOPRAZOLE SO40 MG PO (15:10)
[2017-08-25] MEDS ORDERED: FUROSEMIDE40 MG PO (15:10)
[2017-08-25] MEDS ORDERED: AUGMENTIN875 MG PO (15:37)
[2017-08-25 16:21] VITALS: BP 94/52
== END 2017-08-25 18:16 | DRG 432 ==
LOC: EME 07:28 → 3EAST 11:00 → EDOF 11:00 → ENRESERV 11:03 → EDOF 11:11 → ENRESERV 11:28 → 3EAST 13:13 → ENRESERV 08-21 10:06 → 4EAST 08-21 10:35 → ENRESERV 08-21 10:39 → 4EAST 08-21 10:45 → ENPENDDIS 08-25 → 4EAST 08-25 18:16
PROVIDERS: Emergency Medicine; Family Medicine; Hospitalist; Internal Medicine; Internal Medicine Gastroenterology; Physician Assistant; Radiology Diagnostic Radiology
PROC: 0W9G3ZZ Drainage of Peritoneal Cavity, Percutaneous Approach (ICD-10-PCS; 2017-08-16)
PROC: 0W9B30Z Drainage of Left Pleural Cavity with Drainage Device, Percutaneous Approach (ICD-10-PCS; principal; 2017-08-18)
DX: K70.31 Alcoholic cirrhosis of liver with ascites (principal); J18.9 Pneumonia, unspecified organism; K70.40 Alcoholic hepatic failure without coma; J96.01 Acute respiratory failure with hypoxia; J90 Pleural effusion, not elsewhere classified; T17.890A Other foreign object in other parts of respiratory tract causing asphyxiation, initial encounter; E46 Unspecified protein-calorie malnutrition; D68.9 Coagulation defect, unspecified; E87.1 Hypo-osmolality and hyponatremia; K21.9 Gastro-esophageal reflux disease without esophagitis; I48.92 Unspecified atrial flutter; D69.6 Thrombocytopenia, unspecified; D64.9 Anemia, unspecified; E83.42 Hypomagnesemia; G89.29 Other chronic pain; R60.1 Generalized edema; I47.1 Supraventricular tachycardia; I10 Essential (primary) hypertension; F41.8 Other specified anxiety disorders; M19.90 Unspecified osteoarthritis, unspecified site; F17.210 Nicotine dependence, cigarettes, uncomplicated; Z68.33 Body mass index [BMI] 33.0-33.9, adult; Z79.899 Other long term (current) drug therapy; Z86.010 Personal history of colon polyps
CPT/HCPCS: 36600; 49083; 71020; 71045; 71275; 76705; 76770; 76942; 80048; 80053; 80069; 80076; 81003; 82105 90; 82140; 82803; 82945; 83605; 83615 91; 83735; 83880; 84132; 84157; 84484; 85025; 85027; 85610; 87040; 87070; 87075; 87086; 87205; 88108; 88305; 89051; 93005; 93306; 94010; 94667; 94668; 94799; 97530 GP; 99281; 99285; A6214; G0480; J0153; J0456; J1160; J1644; J1940; J2405; J2543; J2930; J3475; J7050; P9047